=== PATIENT | male | born 1980 | race Caucasian/White ===

== ENCOUNTER 2017-05-18 11:52 | Emergency (ER) | payer OTHER ==
[~2017-05-18] VITALS: Ht 185.4 cm; Wt 127.0 kg
[~2017-05-18 11:52] MED LIST: AMBIEN5 MG PO; DEBROX15 ML OT; PRILOSEC40 M1 PO; ZANAFLEX2 M1; ZESTRIL10 MG PO
[2017-05-18] MEDS ORDERED: CYCLOBENZAPRINE10 MG PO (14:35)
[2017-05-18] MEDS ORDERED: NAPROSYN500 MG PO (15:00)
== END 2017-05-18 14:53 | disposition home or self-care (01) ==
LOC: ED 11:52
DX: S16.1XXA Strain of muscle, fascia and tendon at neck level, initial encounter (principal); Q31.3 Laryngocele; F17.200 Nicotine dependence, unspecified, uncomplicated; F10.10 Alcohol abuse, uncomplicated; Z79.899 Other long term (current) drug therapy; V43.52XA Car driver injured in collision with other type car in traffic accident, initial encounter; Y93.89 Activity, other specified; Y92.89 Other specified places as the place of occurrence of the external cause; Y99.8 Other external cause status

== ENCOUNTER 2022-08-05 16:46 | Inpatient (IN) | payer OTHER ==
[~2022-08-05] VITALS: Ht 185.4 cm; Wt 145.9 kg
[~2022-08-05 16:46] MED LIST changes: +CYCLOBENZAPRINE10 MG PO; +NAPROSYN500 MG PO
[2022-08-05 17:02] VITALS: BP 154/94
[2022-08-05 17:48] LABS: BASO # 0.1 10*3/uL (0.0-0.1); BASO % 0.7 % (0.0-1.0); EOS # 0.2 10*3/uL (0.0-0.4); EOS % 2.3 % (1.0-4.0); LYMPH # 2.1 10*3/uL (1.3-4.4); LYMPH % 21.7 % (27.0-41.0); MEAN CELL VOLUME 99.1 fl (80.0-94.0); MEAN CORPUSCULAR HGB 33.9 pg (27.0-31.0); MEAN CORPUSCULAR HGB CONC 34.2 g/dl (33.0-37.0); MEAN PLATELET VOLUME 10.2 fl (9.6-12.3); MONO # 0.8 10*3/uL (0.1-1.0); MONO % 7.7 % (3.0-9.0); NEUT # 6.6 10*3/uL (2.3-7.9); NEUT % 67.4 % (47.0-73.0); PLATELET COUNT AUTOMATED 343 10*3/uL (130-400); RED BLOOD COUNT 4.54 10*6/uL (4.50-5.90); RED CELL DISTRI WIDTH 12.6 % (0-14.5); WHITE BLOOD COUNT 9.9 10*3/uL (4.8-10.8)
[2022-08-05 18:01] LABS: ALKALINE PHOSPHATASE 81 U/L (46-116); BUN 14 mg/dl (9-23); CHLORIDE 103 mmol/L (98-107); POTASSIUM 3.8 mmol/L (3.4-5.1); SGPT/ALT 153 U/L (10-49); TOTAL PROTEIN 8.2 gm/dL (6.0-8.0)
[2022-08-05 19:35] VITALS: BP 149/88
[2022-08-05 20:21] VITALS: BP 144/95
[2022-08-05] MEDS ORDERED: HYDROCHLOROTHIA25 M1 PO (21:37)
[2022-08-05] MEDS ORDERED: LEVOTHYROXINE50 MCG PO (21:37)
[2022-08-05] MEDS ORDERED: LISINOPRIL40 MG PO (21:38)
[2022-08-05] MEDS ORDERED: AMLODIPINE BESY10 MG PO (21:39)
[2022-08-05] MEDS ORDERED: OMEPRAZOLE40 MG PO (21:39)
[2022-08-05] MEDS ORDERED: SIMVASTATIN20 MG PO (21:40)
[2022-08-05] MEDS ORDERED: VENT7GM INH (21:40)
[2022-08-06] VITALS: BP 154/73
[2022-08-06 06:05] LABS: ALKALINE PHOSPHATASE 74 U/L (46-116); BUN 14 mg/dl (9-23); CHLORIDE 105 mmol/L (98-107); POTASSIUM 4.1 mmol/L (3.4-5.1); SGPT/ALT 119 U/L (10-49); TOTAL PROTEIN 7.6 gm/dL (6.0-8.0)
[2022-08-06 06:16] LABS: ACT PARTIAL THROMBO TIME 28.5 SECONDS (20.0-32.1)
[2022-08-06 06:23] LABS: BASO % 0.1 % (0.0-1.0); HEMATOCRIT 41.6 % (42.0-52.0); LYMPH % 11.6 % (27.0-41.0); MEAN CELL VOLUME 98.3 fl (80.0-94.0); MEAN CORPUSCULAR HGB 33.1 pg (27.0-31.0); MEAN CORPUSCULAR HGB CONC 33.7 g/dl (33.0-37.0); MEAN PLATELET VOLUME 10.7 fl (9.6-12.3); MONO # 0.1 10*3/uL (0.1-1.0); MONO % 1.6 % (3.0-9.0); NEUT # 7.7 10*3/uL (2.3-7.9); PLATELET COUNT AUTOMATED 328 10*3/uL (130-400); RED BLOOD COUNT 4.23 10*6/uL (4.50-5.90); RED CELL DISTRI WIDTH 12.7 % (0-14.5)
[2022-08-06 06:36] LABS: VITAMIN D, 25-HYDROXY 12.9 ng/mL (30-100)
[2022-08-06 08:00] VITALS: BP 140/89
[2022-08-06 12:00] VITALS: BP 134/90
[2022-08-06 16:00] VITALS: BP 148/90
[2022-08-06 20:00] VITALS: BP 106/58
[2022-08-07] VITALS: BP 121/81
[2022-08-07 08:00] VITALS: BP 123/75
[2022-08-07 12:00] VITALS: BP 125/72
[2022-08-07 16:00] VITALS: BP 128/72
[2022-08-07 20:00] VITALS: BP 141/92
[2022-08-08] VITALS: BP 126/91
[2022-08-08 08:00] VITALS: BP 148/98
[2022-08-08 12:00] VITALS: BP 139/74
[2022-08-08 16:00] VITALS: BP 132/80
[2022-08-08 20:00] VITALS: BP 129/85
[2022-08-09] VITALS: BP 134/76
[2022-08-09 08:00] VITALS: BP 147/90
[2022-08-09 12:00] VITALS: BP 135/87
[2022-08-09 16:00] VITALS: BP 120/68
[2022-08-09 20:00] VITALS: BP 137/80
[2022-08-10] VITALS: BP 152/80
[2022-08-10 08:00] VITALS: BP 150/88; BP 158/98
[2022-08-10] MEDS ORDERED: VIBRAMYCIN100 MG PO (09:22)
[2022-08-10] MEDS ORDERED: FLUCONAZOLE100 MG PO (09:22)
[2022-08-10] MEDS ORDERED: MICONAZOLE NITR15 GM T (09:22)
[2022-08-10] MEDS ORDERED: HYDROCODONE-AC1 EAC1 PO (10:50)
[2022-08-10] MEDS ORDERED: VITAMIN D31250 MCG PO (13:54)
== END 2022-08-10 11:43 | disposition home or self-care (01) | DRG 383 ==
LOC: ED 16:46 → EDHOLD 18:23 → 5E 18:23
PROVIDERS: Nurse Practitioner Family; Student in an Organized Health Care Education/Training Program; ADMIT Student in an Organized Health Care Education/Training Program; ATTEND Student in an Organized Health Care Education/Training Program
DX: L03.115 Cellulitis of right lower limb (principal); L30.9 Dermatitis, unspecified; B35.4 Tinea corporis; R74.01 Elevation of levels of liver transaminase levels; E66.01 Morbid (severe) obesity due to excess calories; F17.210 Nicotine dependence, cigarettes, uncomplicated; R00.1 Bradycardia, unspecified; I10 Essential (primary) hypertension; K21.9 Gastro-esophageal reflux disease without esophagitis; E03.9 Hypothyroidism, unspecified; Z71.6 Tobacco abuse counseling; Z68.41 Body mass index [BMI] 40.0-44.9, adult; Z79.51 Long term (current) use of inhaled steroids; Z79.899 Other long term (current) drug therapy

== ENCOUNTER 2023-12-06 11:05 | Emergency (ER) | payer OTHER ==
[~2023-12-06] VITALS: Ht 185.4 cm; Wt 149.7 kg
[~2023-12-06 11:05] MED LIST changes: -ALA-CORT28.4 GM T; -Motrin,Rufen400 MG PO; -TYLENOL325 M1 PO
[2023-12-06] MEDS ORDERED: Acetaminophen/Hydrocodone 5 MG/325 MG TABLET PO ONE (12:10)
[2023-12-06] MEDS ORDERED: IBUPROFEN 400 MG TAB PO ONE (12:10)
[2023-12-06] MEDS ORDERED: ACETAMINOPHEN 325 MG TAB PO ONE (12:10)
[2023-12-06] MEDS ORDERED: ALA-CORT28.4 GM T (12:15)
[2023-12-06] MEDS ORDERED: Motrin,Rufen400 MG PO (12:15)
[2023-12-06] MEDS ORDERED: TYLENOL325 M1 PO (12:15)
[2023-12-06] MEDS ORDERED: HYDROCODONE-AC1 EAC1 PO (12:15)
== END 2023-12-06 12:31 | disposition home or self-care (01) ==
LOC: ED 11:05
DX: K13.0 Diseases of lips (principal); K21.9 Gastro-esophageal reflux disease without esophagitis; I10 Essential (primary) hypertension; E03.9 Hypothyroidism, unspecified; F41.9 Anxiety disorder, unspecified; F17.210 Nicotine dependence, cigarettes, uncomplicated; F12.90 Cannabis use, unspecified, uncomplicated; Z90.89 Acquired absence of other organs; Z98.890 Other specified postprocedural states

== ENCOUNTER → 2023-12-06 | Outpatient (CLI) | payer OTHER ==
[~2023-12-06] MED LIST changes: +ALA-CORT28.4 GM T; +AMLODIPINE BESY10 MG PO; +FLUCONAZOLE100 MG PO; +HYDROCHLOROTHIA25 M1 PO; +HYDROCODONE-AC1 EAC1 PO; +LEVOTHYROXINE50 MCG PO; +LISINOPRIL40 MG PO; +MICONAZOLE NITR15 GM T; +Motrin,Rufen400 MG PO; +OMEPRAZOLE40 MG PO; +SIMVASTATIN20 MG PO; +TYLENOL325 M1 PO; +VENT7GM INH; +VIBRAMYCIN100 MG PO; +VITAMIN D31250 MCG PO
[2023-12-06 13:03] LABS: BASO # 0.1 10*3/uL (0.0-0.1); BASO % 0.9 % (0.0-1.0); EOS # 0.3 10*3/uL (0.0-0.4); EOS % 3.1 % (1.0-4.0); HEMATOCRIT 46.3 % (42.0-52.0); LYMPH # 2.3 10*3/uL (1.3-4.4); LYMPH % 24.6 % (27.0-41.0); MEAN CELL VOLUME 94.3 fl (80.0-94.0); MEAN PLATELET VOLUME 10.4 fl (9.6-12.3); MONO # 0.7 10*3/uL (0.1-1.0); MONO % 7.4 % (3.0-9.0); NEUT % 63.7 % (47.0-73.0); PLATELET COUNT AUTOMATED 232 10*3/uL (130-400); RED BLOOD COUNT 4.91 10*6/uL (4.50-5.90); RED CELL DISTRI WIDTH 13.4 % (0-14.5); WHITE BLOOD COUNT 9.4 10*3/uL (4.8-10.8)
[2023-12-06 13:28] LABS: ALKALINE PHOSPHATASE 104 U/L (46-116); BUN 8 mg/dl (9-23); CHLORIDE 105 mmol/L (98-107); POTASSIUM 3.4 mmol/L (3.4-5.1); SGPT/ALT 112 U/L (5-49); TOTAL PROTEIN 7.8 gm/dL (6.0-8.0)
== END | disposition home or self-care (01) ==
LOC: LAB 12:44
PROVIDERS: ATTEND Student in an Organized Health Care Education/Training Program
DX: I10 Essential (primary) hypertension (principal); K13.0 Diseases of lips; E03.9 Hypothyroidism, unspecified

== ENCOUNTER → 2024-04-11 | Outpatient (CLI) | payer OTHER ==
[~2024-04-11] MED LIST changes: +ALA-CORT28.4 GM T; +Motrin,Rufen400 MG PO; +TYLENOL325 M1 PO
[2024-04-11 11:14] LABS: BASO # 0.1 10*3/uL (0.0-0.1); BASO % 0.9 % (0.0-1.0); EOS # 0.2 10*3/uL (0.0-0.4); EOS % 3.1 % (1.0-4.0); HEMATOCRIT 45.4 % (42.0-52.0); MEAN CELL VOLUME 97.2 fl (80.0-94.0); MEAN CORPUSCULAR HGB 32.8 pg (27.0-31.0); MEAN CORPUSCULAR HGB CONC 33.7 g/dl (33.0-37.0); MEAN PLATELET VOLUME 10.2 fl (9.6-12.3); MONO # 0.8 10*3/uL (0.1-1.0); NEUT # 4.2 10*3/uL (2.3-7.9); NEUT % 54.3 % (47.0-73.0); PLATELET COUNT AUTOMATED 244 10*3/uL (130-400); RED BLOOD COUNT 4.67 10*6/uL (4.50-5.90); RED CELL DISTRI WIDTH 12.8 % (0-14.5); WHITE BLOOD COUNT 7.8 10*3/uL (4.8-10.8)
[2024-04-15 04:04] LABS: TRYPTASE 4.3 ug/L (2.2-13.2)
== END | disposition home or self-care (01) ==
LOC: LAB 10:45
PROVIDERS: ATTEND Allergy & Immunology
DX: T78.3XXA Angioneurotic edema, initial encounter (principal); J45.30 Mild persistent asthma, uncomplicated; X58.XXXA Exposure to other specified factors, initial encounter